=== PATIENT | female | born 1985 | race Caucasian/White ===

== ENCOUNTER 2019-02-06 22:02 | Emergency (ER) | payer MEDICAID ==
[~2019-02-06] VITALS: Ht 152.4 cm; Wt 79.4 kg
[2019-02-06 22:07] VITALS: BP 148/85
--- NOTE | 2019-02-06 22:12 | NUR ---
PT AMBULATED TO BED 7.
--- NOTE | 2019-02-06 22:12 | NUR ---
PT WHEELCHAIR ASSISTED TO BED
--- NOTE | 2019-02-06 22:30 | NUR ---
33 Y/O F, PRESENTED TO ED C/O LT HEEL PAIN, S/P STEPPING ON A STAIR 3 HRS AGO. PT STATED THAT SHE FELT SOMETHING SNAPPED AT THE BOTTOM OF HER FOOT NOW C/O 9/10 PAIN ON LT HEEL NON-RADIATING. PT ABLE TO MOVE LT TOES, PEDAL PULSES PRESENT, CAP REFILL <3, AAOX4, GCS 15, RR EVEN UNLABORED, ED MD DR. JULIAN MADE AWARE, BED LOCKED IN LOWEST POSITION, SIDERAIL UP. WILL CONTINUE TO MONITOR CLOSELY.
--- NOTE | 2019-02-06 22:58 | NUR ---
Dr. Villarreal examining patient.
[2019-02-06] MEDS ORDERED: KETOROLAC 60 MG/2 ML VIAL IM ONE (23:15)
[2019-02-06 23:39] VITALS: BP 135/62
--- NOTE | 2019-02-06 23:40 | NUR ---
Patient discharged with v/s stable. Written and verbal after care instructions given and explained. Patient alert, oriented and verbalized understanding of instructions. Ambulatory with steady gait. All questions addressed prior to discharge. ID band removed. Patient advised to follow up with PMD. Rx of TRAMADOL, MOTRIN given. Patient educated on indication of medication including possible reaction and side effects. Opportunity to ask questions provided and answered.
== END 2019-02-06 23:40 | disposition home or self-care (01) ==
LOC: MED 22:02
DX: M72.2 Plantar fascial fibromatosis (principal)
CPT/HCPCS: 73650; 96372; 99283; J1885